=== PATIENT | male | born 1995 | race Caucasian/White ===

== ENCOUNTER 2020-04-20 22:32 | Emergency (ER) | payer BC ==
[~2020-04-20] VITALS: Ht 175.3 cm; Wt 72.7 kg
[2020-04-20] MEDS ORDERED: MORPHINE SULFATE 4 MG/ML VIAL. IV/SQ PRN (22:45)
[2020-04-20 22:53] LABS: BASO # 0.1 x10^3/uL (0.0-0.2); BASO % 1 % (0-3); EOS # 0.1 x10^3/uL (0.0-0.7); EOS % 1 % (0-3); HEMATOCRIT 46.2 % (39.0-53.0); LYMPH # 1.6 x10^3/uL (1.0-4.8); LYMPH % 20 % (24-48); MEAN CORPUSCULAR HEMOGLOBIN 31 pg (25-35); MEAN CORPUSCULAR HGB CONC 35 g/dL (31-37); MEAN CORPUSCULAR VOLUME 90 fL (79-100); MONO # 0.5 x10^3/uL (0.0-1.1); MONO % 6 % (0-9); NEUT # 5.7 x10^3/uL (1.8-7.7); NEUT % 72 % (31-73); PLATELET COUNT 217 x10^3/uL (140-400); RED BLOOD COUNT 5.13 x10^6/uL (4.30-5.70); RED CELL DISTRIBUTION WIDTH 12.6 % (11.5-14.5)
[2020-04-20] MEDS ORDERED: ASPIRIN 325 MG TABLET PO ONE (23:00)
--- NOTE | 2020-04-20 23:00 | PHYS DOC ---
General Adult EDM: Chief Complaint: CHEST PAIN HPI: HPI: Patient is a 24 year old male who presents to the ED today complaining of substernal chest pain nonradiating in nature that began this evening after smoking weed. Patient unable to rate the pain. Unable to describe the pain. Denies the pain radiating. Denies any shortness of breath, coughing or congestion. Review of Systems: Review of Systems: Constitutional: Denies fever or chills. [] Eyes: Denies change in visual acuity. [] HENT: Denies nasal congestion or sore throat. [] Respiratory: Denies cough or shortness of breath. [] Cardiovascular: Reports chest pain GI: Denies abdominal pain, nausea, vomiting, bloody stools or diarrhea. [] : Denies dysuria. [] Musculoskeletal: Denies back pain or joint pain. [] Integument: Denies rash. [] Neurologic: Denies headache, focal weakness or sensory changes. [] Psychiatric: Reports smoking weed. Denies depression or anxiety. [] Heart Score: HEART Score for Chest Pain: HEART Score for Chest Pain Response (Comments) Value History Slighlty/Non-Suspicious 0 ECG Normal 0 Age < 45 0 Risk Factors No Risk Factors 0 Troponin < Normal Limit 0 Total 0 Risk Factors: Risk Factors: DM, Current or recent (<one month) smoker, HTN, HLP, family history of CAD, obesity. Risk Scores: Score 0 - 3: 2.5% MACE over next 6 weeks - Discharge Home Score 4 - 6: 20.3% MACE over next 6 weeks - Admit for Clinical Observation Score 7 - 10: 72.7% MACE over next 6 weeks - Early Invasive Strategies Current Medications: Current Medications Medications (Trade) Dose Ordered Sig/[facility] Start Time Stop Time Status Last Admin Dose Admin Aspirin (Milad Aspirin) 325 mg 1X ONCE 04/20/20 22:45 04/20/20 22:46 UNV Morphine Sulfate (Morphine Sulfate) 4 mg PRN Q15MIN PRN 04/20/20 22:45 04/21/20 22:44 UNV Physical Exam: PE: Constitutional: Well developed, well nourished, no acute distress, non-toxic appearance. [] HENT: Normocephalic, atraumatic, bilateral external ears normal, oropharynx moist, no oral exudates, nose normal. [] Eyes: PERRLA, EOMI, conjunctiva normal, no discharge. [] Neck: Normal range of motion, no tenderness, supple, no stridor. [] Cardiovascular:Heart rate regular rhythm, no murmur [] Lungs & Thorax: Bilateral breath sounds clear to auscultation [] Abdomen: Bowel sounds normal, soft, no tenderness, no masses, no pulsatile masses. [] Skin: Warm, dry, no erythema, no rash. [] Back: No tenderness, no CVA tenderness. [] Extremities: No tenderness, no cyanosis, no clubbing, ROM intact, no edema. [] Neurologic: Alert and oriented X 3, normal motor function, normal sensory function, no focal deficits noted. [] Psychologic: Affect normal, judgement normal, mood normal. [] EKG: EK interpreted by Dr. Sole canela rhythm HR 97 no STEMI Radiology/Procedures: Radiology/Procedures: [] Course & Med Decision Making: Course & Med Decision Making Pertinent Labs and Imaging studies reviewed. (See chart for details) This is a 24-year-old male patient presenting to the ED today complaining of chest pain that began this evening after smoking marijuana. EKG is negative. CBC is negative. D-dimer is negative. Troponin and CMP are normal. Patient was discharged to home. Provided instructions to follow-up with fast food services manager as well as PCP. Jermaine Disclaimer: Jermaine Disclaimer: This electronic medical record was generated, in whole or in part, using a voice recognition dictation system. Departure Departure Impression: Primary Impression: Chest pain Qualified Codes: R07.9 - Chest pain, unspecified Additional Impression: Marijuana use Disposition: 01 HOME, SELF-CARE Condition: STABLE Referrals: ISIS RODRIGUEZ MD follow up in 1 week Patient Instructions: Chest Pain (Nonspecific), Marijuana Abuse and Chemical Dependency Additional Instructions: You were seen for chest pain. Consider not using marijuana. Follow-up with your own doctor or the provided fast food services manager in 1 to 2 weeks. Justicifation of Admission Dx: Justifications for Admission: Justification of Admission Dx: N/A ANTIONE DUNN MEDICAL TRANSCRIPTION EDITOR Apr 20, 2020 23:00
[2020-04-20 23:06] LABS: PROTHROMBIN TIME PATIENT 13.5 SEC (11.7-14.0)
[2020-04-20 23:09] LABS: CALCIUM 8.8 mg/dL (8.5-10.1); CREATININE 0.9 mg/dL (0.7-1.3); GFR 105.5; POTASSIUM 3.8 mmol/L (3.5-5.1)
[2020-04-20 23:11] LABS: D-DIMER < 0.27 ug/mlFEU (0.00-0.50)
[2020-04-20 23:15] LABS: ALBUMIN 4.4 g/dL (3.4-5.0); ALBUMIN/GLOBULIN RATIO 1.7 (1.0-1.7); MAGNESIUM 1.9 mg/dL (1.8-2.4); TOTAL BILIRUBIN 0.4 mg/dL (0.2-1.0)
--- NOTE | 2020-04-20 23:20 | RAD ---
INDICATION: Reason: chest pain / Spl. Instructions: / History: COMPARISON: None. FINDINGS: Single view of chest obtained. No focal airspace consolidation. Cardiomediastinal contour unremarkable. No acute osseous abnormality. IMPRESSION: * No focal airspace consolidation or edema. Electronically signed by: Colby Harding MD (04/20/2020 11:17 PM) [id number]
[2020-04-20 23:53] VITALS: BP 140/63
--- NOTE | 2020-04-21 08:06 | EKG ---
[facility] [address] [place] [address] Test Date: 2020-04-20 Test Time: 22:44:46 Pat Name: JOSELINE SAN Department: Room: Gender: M Bartender Helper: : 1995 Requested By: ANTIONE DUNN Order Number: [id number] Reading MD: Measurements Intervals [place] Rate: 97 P: 65 OK: 136 QRS: 69 QRSD: 84 T: 43 QT: 320 QTc: 410 Interpretive Statements SINUS RHYTHM NORMAL ECG RI6.01 No previous ECG available for comparison
== END 2020-04-20 23:54 | disposition home or self-care (01) ==
LOC: ER 22:32 → EEVIPCON 22:32 → ER 23:54
DX: R07.89 Other chest pain (principal); F12.90 Cannabis use, unspecified, uncomplicated
CPT/HCPCS: 36415; 71045; 80053; 83690; 83735; 83880; 84443; 84484; 85025; 85379; 85610; 93005; 99285

== ENCOUNTER 2020-05-04 22:07 | Emergency (ER) | payer BC ==
[~2020-05-04] VITALS: Ht 177.8 cm; Wt 72.7 kg
[2020-05-04] MEDS ORDERED: MIDAZOLAM HCL/PF 2 MG/2 ML VIAL. ONE (22:32)
[2020-05-04 22:46] LABS: BASO # 0.1 x10^3/uL (0.0-0.2); BASO % 1 % (0-3); EOS # 0.1 x10^3/uL (0.0-0.7); EOS % 1 % (0-3); HEMATOCRIT 47.7 % (39.0-53.0); HEMOGLOBIN 16.8 g/dL (13.0-17.5); LYMPH # 2.4 x10^3/uL (1.0-4.8); LYMPH % 26 % (24-48); MEAN CORPUSCULAR HEMOGLOBIN 32 pg (25-35); MEAN CORPUSCULAR HGB CONC 35 g/dL (31-37); MEAN CORPUSCULAR VOLUME 90 fL (79-100); MONO # 0.7 x10^3/uL (0.0-1.1); MONO % 8 % (0-9); NEUT # 5.9 x10^3/uL (1.8-7.7); NEUT % 64 % (31-73); PLATELET COUNT 262 x10^3/uL (140-400); RED BLOOD COUNT 5.33 x10^6/uL (4.30-5.70); RED CELL DISTRIBUTION WIDTH 12.7 % (11.5-14.5); WHITE BLOOD COUNT 9.1 x10^3/uL (4.0-11.0)
--- NOTE | 2020-05-04 22:56 | RAD ---
Exam: Chest one view INDICATION: Chest pain TECHNIQUE: Frontal view of the chest Comparisons: None FINDINGS: The cardiomediastinal silhouette and pulmonary vessels are within normal limits. The lung and pleural spaces are clear. IMPRESSION: No acute cardiopulmonary process. Electronically signed by: Gallo Galloway MD (05/04/2020 10:54 PM) [id number]
[2020-05-04] MEDS ORDERED: MIDAZOLAM HCL/PF 5 MG/5 ML VIAL. IV ONE (23:00)
[2020-05-04] MEDS ORDERED: IV NORMAL SALINE 1000ML BAG 1,000 ML IV ONE ×2 (23:00)
[2020-05-04 23:02] LABS: ALBUMIN/GLOBULIN RATIO 1.7 (1.0-1.7); CALCIUM 9.4 mg/dL (8.5-10.1); CREATININE 1.2 mg/dL (0.7-1.3); GFR 75.7; TOTAL BILIRUBIN 0.5 mg/dL (0.2-1.0); TOTAL PROTEIN 7.9 g/dL (6.4-8.2)
[2020-05-04 23:21] LABS: POTASSIUM 2.7 mmol/L (3.5-5.1)
[2020-05-04 23:28] LABS: AMPHETAMINE/METHAMPHETAMINE NEG (NEG); BARBITURATES NEG (NEG); BENZODIAZEPINES POS (NEG); CANNABINOIDS POS (NEG); COCAINE NEG (NEG); METHADONE NEG (NEG); OPIATES NEG (NEG); PHENCYCLIDINE NEG (NEG)
--- NOTE | 2020-05-04 23:28 | PHYS DOC ---
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 Denies any known coingestants, no alcohol, cocaine or methamphetamine abuse. Denies any trauma, fall, head injury or physical abuse. Vague SI statements made at triage? Pt denies any SI or HI to myself. Admits to being espinoza y paranoid and anxious and states "I feel like I'm going to ." No prior h/o psych admissions or SI attempts. Review of Systems: Review of Systems: Constitutional: Denies fever or chills. [] Eyes: Denies change in visual acuity. [] HENT: Denies nasal congestion or sore throat. [] Respiratory: Denies cough or shortness of breath. [] Cardiovascular: Denies edema. [] GI: Denies abdominal pain, nausea, vomiting, bloody stools or diarrhea. [] : Denies dysuria. [] Musculoskeletal: Denies back pain or joint pain. [] Integument: Denies rash. [] Neurologic: Denies headache, focal weakness or sensory changes. [] Endocrine: Denies polyuria or polydipsia. [] Lymphatic: Denies swollen glands. [] Psychiatric: Denies depression or anxiety, HI, SI Heart Score: Risk Factors: Risk Factors: DM, Current or recent (<one month) smoker, HTN, HLP, family history of CAD, obesity. Risk Scores: Score 0 - 3: 2.5% MACE over next 6 weeks - Discharge Home Score 4 - 6: 20.3% MACE over next 6 weeks - Admit for Clinical Observation Score 7 - 10: 72.7% MACE over next 6 weeks - Early Invasive Strategies Current Medications: Current Medications Medications (Trade) Dose Ordered Sig/[facility] Start Time Stop Time Status Last Admin Dose Admin Midazolam HCl (Versed) 2 mg STK-MED ONCE 05/04/20 22:32 05/04/20 22:32 DC Sodium Chloride 1,000 ml @ 1,000 mls/hr 1X ONCE 05/04/20 23:00 05/04/20 23:59 05/04/20 22:36 1,000 MLS/HR Allergies: Allergies: Allergies Coded Allergies Type Severity Reaction Last Updated Verified No Known Drug Allergies 04/20/20 No Physical Exam: PE: Constitutional: non-toxic appearance. [] HENT: Normocephalic, atraumatic, no signs of head trauma Eyes: PERRLA-3mm bl, EOMI, conjunctiva normal, no discharge. [] Neck: Normal range of motion, no tenderness, supple, no stridor. [] Cardiovascular: Tachycardic, no murmur [] Lungs & Thorax: Bilateral breath sounds clear to auscultation [] Abdomen: Bowel sounds normal, soft, no tenderness, no masses, no pulsatile masses. [] Skin: Warm, dry, no erythema, no rash. [] Back: No tenderness, no CVA tenderness. [] Extremities: No tenderness, no cyanosis, no clubbing, ROM intact, no edema, shaking Neurologic: Alert and oriented X 3, normal motor function, normal sensory function, no focal deficits noted. [] Psychologic: very paranoid and anxious Current Patient Data: Labs: Laboratory Tests Test 05/04/20 22:30 White Blood Count 9.1 x10^3/uL (4.0-11.0) Red Blood Count 5.33 x10^6/uL (4.30-5.70) Hemoglobin 16.8 g/dL (13.0-17.5) Hematocrit 47.7 % (39.0-53.0) Mean Corpuscular Volume 90 fL (79-100) Mean Corpuscular Hemoglobin 32 pg (25-35) Mean Corpuscular Hemoglobin Concent 35 g/dL (31-37) Red Cell Distribution Width 12.7 % (11.5-14.5) Platelet Count 262 x10^3/uL (140-400) Neutrophils (%) (Auto) 64 % (31-73) Lymphocytes (%) (Auto) 26 % (24-48) Monocytes (%) (Auto) 8 % (0-9) Eosinophils (%) (Auto) 1 % (0-3) Basophils (%) (Auto) 1 % (0-3) Neutrophils # (Auto) 5.9 x10^3/uL (1.8-7.7) Lymphocytes # (Auto) 2.4 x10^3/uL (1.0-4.8) Monocytes # (Auto) 0.7 x10^3/uL (0.0-1.1) Eosinophils # (Auto) 0.1 x10^3/uL (0.0-0.7) Basophils # (Auto) 0.1 x10^3/uL (0.0-0.2) Sodium Level 139 mmol/L (136-145) Potassium Level 2.7 mmol/L (3.5-5.1) *L Chloride Level 101 mmol/L (98-107) Carbon Dioxide Level 21 mmol/L (21-32) Anion Gap 17 (6-14) H Blood Urea Nitrogen 9 mg/dL (8-26) Creatinine 1.2 mg/dL (0.7-1.3) Estimated GFR (Cockcroft-Gault) 75.7 BUN/Creatinine Ratio 8 (6-20) Glucose Level 133 mg/dL (70-99) H Calcium Level 9.4 mg/dL (8.5-10.1) Total Bilirubin 0.5 mg/dL (0.2-1.0) Aspartate Amino Transferase (AST) 14 U/L (15-37) L Alanine Aminotransferase (ALT) 19 U/L (16-63) Alkaline Phosphatase 69 U/L (46-116) Total Protein 7.9 g/dL (6.4-8.2) Albumin 5.0 g/dL (3.4-5.0) Albumin/Globulin Ratio 1.7 (1.0-1.7) Laboratory Tests 05/04/20 22:30 Laboratory Tests 05/04/20 22:30 Vital Signs: Vital Signs Date Time Temp Pulse Resp B/P (MAP) Pulse Ox O2 Delivery O2 Flow Rate FiO2 05/04/20 22:45 98.8 110 24 156/110 (125) 96 Room Air 98.8 EKG: EKG: sinus tachycardia at 131 bpm, no axis deviation, normal intervals, no T wave inversions, no ST elevations or ST depressions Radiology/Procedures: Radiology/Procedures: []IMAGING REPORT Signed PATIENT: JOSELINE SAN ACCOUNT: [id number] : 1995 LOCATION: ER AGE: 24 SEX: M EXAM STATUS: PRE ER ORD. PHYSICIAN: MITCH LEOS DO REASON: cp PROCEDURE: CHEST AP ONLY Exam: Chest one view INDICATION: Chest pain TECHNIQUE: Frontal view of the chest Comparisons: None FINDINGS: The cardiomediastinal silhouette and pulmonary vessels are within normal limits. The lung and pleural spaces are clear. IMPRESSION: No acute cardiopulmonary process. Electronically signed by: Gallo Serna MD (05/04/2020 10:54 PM) [id number] DICTATED and SIGNED BY: GALLO SERNA MD DATE: 05/04/204 Course & Med Decision Making: Course & Med Decision Making Pertinent Labs and Imaging studies reviewed. (See chart for details) Concern for marijuana abuse in the setting of sinus tachycardia and hypokalemia. Potassium replacement started in ED. Pt with no clear suicidal statements other than his chest was hurting him. Mother present in ed (is an RN that works here), pt with no psych rfs or prior attempts. Drug screen positive for benzos and thc (versed given in ed). Pt now sober with [facility]. Denies any SI/HI. Psych assessment performed and agrees with me and staff that pt is not a danger to himself. Outpatient resources given for substance abuse and counseling. Strict ed return precautions given for chest pain, si/hi. Discouraged substance abuse. Encouraged urgent outpatient follow-up with PMD. Life-threatening processes were considered but are low suspicion at this time, given history and physical exam. Pt was educated on all prescription medications and adverse effects. All patient's questions were answered and pt was stable at time of discharge. Differential includes acute myocardial infarction, aortic dissection, congestive heart failure, esophageal injury including rupture, surgical abdomen, arrhythmia, cardiomyopathy, myocarditis, pericarditis, peptic ulcer disease, pneumomediastinum, pneumonia, pneumothorax, pulmonary embolus, unstable angina, rib fracture, contusion, pericardial tamponade or effusion, pulmonary contusion. I spoken with the patient and her caregivers. I explained the patient's condition, diagnoses and treatment plan based on the information available to me at this time. I have answered the patient and her caregiver's questions and addressed any concerns. The patient and her caregivers have a good understanding of patient's diagnosis, condition and treatment plan as can be expected at this point. Vital signs have been stable. Patient's condition is stable and appropriate for discharge from the emergency department. Patient will pursue further outpatient evaluation with primary care physician or other designated or consulting physician as outlined in the discharge instructions. The patient and/or caregivers are agreeable to this plan of care and follow-up instructions have been explained in detail. The patient and/or caregivers have received these instructions in written form and have expressed an understanding of the discharge instructions. The patient and/or caregivers are aware that any significant change of condition or worsening of symptoms should prompt immediate return to this or the closest emergency department or call to 911. Jermaine Disclaimer: [employer] Disclaimer: This electronic medical record was generated, in whole or in part, using a voice recognition dictation system. Departure Departure Impression: Primary Impression: Marijuana use Additional Impression: Hypokalemia Disposition: 01 HOME, SELF-CARE Condition: STABLE Referrals: TANVI TENA (PCP) Patient Instructions: Hypokalemia, Marijuana Abuse-Brief Additional Instructions: Have your potassium repeated by her primary care physician within the next week. Potassium was 2.7 in ed and replaced with 40meq and 2gm magnesium. One more dose of potassium 40meq prescribed. Scripts Potassium Chloride (POTASSIUM CHLORIDE ) 20 Meq Tablet.er 40 MEQ PO ONCE for SUPPLEMENT for 1 Day, #2 TAB.SR 0 Refills Prov: MITCH LEOS DO 05/05/20 Justicifation of Admission Dx: Justifications for Admission: Justification of Admission Dx: N/A MITCH LEOS DO May 04, 2020 23:27
[2020-05-05] MEDS ORDERED: POTASSIUM CHLORIDE 20 MEQ TABLET.ER. PO ONE
[2020-05-05] MEDS ORDERED: MAGNESIUM SULFATE 2GM 50 ML IV ONE (00:30)
[2020-05-05 01:54] VITALS: BP 128/60
[2020-05-05] MEDS ORDERED: POTA20TA4 PO (02:22)
== END 2020-05-05 02:27 | disposition home or self-care (01) ==
LOC: ER 22:07
DX: F12.10 Cannabis abuse, uncomplicated (principal); E87.6 Hypokalemia; R00.2 Palpitations; R00.0 Tachycardia, unspecified; F41.9 Anxiety disorder, unspecified; F32.9 Major depressive disorder, single episode, unspecified; F17.200 Nicotine dependence, unspecified, uncomplicated
CPT/HCPCS: 36415; 71045; 80053; 80307; 83735; 84484; 85025; 96361; 96365; 96366; 96375; 99285; J2250; J3475; J7030